=== PATIENT | female | born 1965 | race American Indian/Alaskan Native ===

== ENCOUNTER 2017-08-03 16:26 | Emergency (ER) | payer MEDICAID, OTHER ==
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
== END 2017-08-03 17:46 | disposition home or self-care (01) ==
LOC: DL.ED 16:26
DX: S52.614A Nondisplaced fracture of right ulna styloid process, initial encounter for closed fracture (principal); F17.210 Nicotine dependence, cigarettes, uncomplicated; I10 Essential (primary) hypertension; Z88.5 Allergy status to narcotic agent; Y04.0XXA Assault by unarmed brawl or fight, initial encounter
CPT/HCPCS: 29125; 73110-RT; 99283

== ENCOUNTER 2017-08-05 15:29 | Emergency (ER) | payer MEDICAID, OTHER ==
[2017-08-05] MEDS ORDERED: Acetaminophen/HYDROcodone 325-10 MG Tab PO ONE (16:48)
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
== END 2017-08-05 17:10 | disposition home or self-care (01) ==
LOC: DL.ED 15:29
DX: S52.601D Unspecified fracture of lower end of right ulna, subsequent encounter for closed fracture with routine healing (principal); I10 Essential (primary) hypertension; F17.210 Nicotine dependence, cigarettes, uncomplicated; Z88.5 Allergy status to narcotic agent; X58.XXXD Exposure to other specified factors, subsequent encounter
CPT/HCPCS: 99283; A9270